=== PATIENT | male | born 1990 | race Two or more races ===

== ENCOUNTER 2024-11-12 18:28 | Emergency (ER) | payer MEDICAID, SELFPAY ==
[2024-11-12 18:29] VITALS: BMI 28.2
[2024-11-12 18:49] VITALS: BP 125/71; PULSE 118; RESP 24; TEMP 39.3; O2SAT 96
--- NOTE | 2024-11-12 19:05 | XR_ITS ---
Examination: PA lateral chest 2 views Technique: Upright PA lateral chest 2 views Exam date and time: November 12, 2024 1952 hrs. Indications: Chest pain sepsis today. Findings: Normal heart size Lungs are clear. The osseous structures are intact Impression: No active disease
--- NOTE | 2024-11-12 19:06 | PD.EDRME ---
Rapid Medical Screening Exam RME Arrival date/time: 11/12/24 18:28 34M with no significant PMH presents to ED with 1 week of cough, CP, and SOB. Patient was diagnosed in [place] with some unknown respiratory infection possibly Valley Fever. Chief Complaint: Flu Like Symptoms Vital signs: Vital Signs Temperature 102.8 F H 11/12/24 18:49 Pulse Rate 118 H 11/12/24 18:49 Respiratory Rate 24 H 11/12/24 18:49 Blood Pressure 125/71 11/12/24 18:49 Pulse Oximetry (%) 96 11/12/24 18:49 Oxygen Delivery Method Room Air 11/12/24 18:49
[2024-11-12 19:29] LABS: Lactate (Lactic Acid) 1.6 mMol/L (0.4-2.0)
[2024-11-12 19:38] LABS: Basophils % (Auto) 0 % (0-2.5); Eosinophils % (Auto) 0 % (0-10); Hemoglobin 16.4 g/dL (13.5-16.0); Immature Granulocytes % (Auto) 0 % (0-0); Immature Granulocytes Auto 0.02 Thou/mm3 (0.00-0.00); Lymphocytes % (Auto) 11 % (10-50); Mean Corpuscular HGB Conc 34.9 g/dl (31.0-37.0); Mean Corpuscular Hemoglobin 29.8 pg (25.0-35.0); Mean Corpuscular Volume 86 fL (80-100); Monocytes # (Auto) 0.6 Thou/mm3 (0.0-0.8); Monocytes % (Auto) 7 % (0-12); Neutrophils # (Auto) 7.3 Thou/mm3 (1.8-7.7); Neutrophils % (Auto) 82 % (37-80); Nucleated Red Blood Cell % 0 /100 WBC (0); Platelet Count 188 Thou/mm3 (140-440); RDW Standard Deviation 37.6 fL (35.1-43.9)
[2024-11-12 20:09] LABS: Alanine Aminotransferase 77 U/L (10-49); Albumin, Serum 4.9 gm/dL (3.5-5.0); Albumin/Globulin Ratio 1.8 (1.2-2.2); Alkaline Phosphatase 106 U/L (46-116); Anion Gap 7 (7-16); Aspartate Amino Transferase 51 U/L (0-34); BUN/Creatinine Ratio 10 Ratio (12-20); Bilirubin,Total 0.3 mg/dL (0.3-1.2); Blood Urea Nitrogen 13 mg/dL (9-23); Calcium 9.9 mg/dL (8.3-10.6); Calcium (Corrected) 9.9 mg/dL (8.5-10.1); Carbon Dioxide 23.6 mMol/L (20.0-31.0); Chloride 105 mMol/L (98-107); Creatinine (Component) 1.3 mg/dL (0.6-1.3); Globulin 2.7 gm/dL (2.3-3.5); Glucose 114 mg/dL (74-106); Osmolality,Calculated 273 (275-295); Potassium 4.4 mMol/L (3.4-5.1); Sodium 136 mMol/L (136-145); Total Protein 7.6 gm/dL (5.7-8.2); Troponin I < 0.002 ng/mL (0.0-0.045); eGFR > 60 See Note
[2024-11-12] MEDS: ALBUTEROL/IPRATROPIUM (Duoneb) RT SOL 3 ML NEBU INH (20:28)
[2024-11-12 20:31] VITALS: TEMP 39.3
[2024-11-12] MEDS: SODIUM CHLORIDE 0.9% 1000 ML 1,000 ML 999 ML IV (20:31)
[2024-11-12] MEDS: NAPROXEN 250 MG TABLET 500 MG PO (20:31)
[2024-11-12] MEDS: ACETAMINOPHEN 500 MG TABLET 1000 MG PO (20:31)
[2024-11-12 20:34] VITALS: PULSE 120; RESP 18; O2SAT 95
--- NOTE | 2024-11-12 21:26 | EDNOTE_ITS ---
<Statement entered by Araceli Welsh MD - 11/13/24 19:20> As co-signing physician, I was present and available for consult prn. I concur with the plan and care as documented by the midlevel provider. Upper Respiratory Inf. RME/HPI General Chief Complaint: Flu Like Symptoms Stated Complaint: FLU SYMPTOMS/COUGH /FEVER X 5DAYS Time Seen by Provider: 11/12/24 21:26 Arrival date/time: 11/12/24 18:28 34M with no significant PMH presents to ED with 1 week of cough, CP, and SOB. Patient's tested positive for flu A. Limitations: no limitations RME / HPI RME / HPI Narrative: 11/12/24 18:28 34M with no significant PMH presents to ED with 1 week of cough, CP, and SOB. Patient was diagnosed in [place] with some unknown respiratory infection possibly [place] Fever. Related Data Allergies Allergy/AdvReac Type Severity Reaction Status Date / Time No Known Allergies Allergy Verified 11/12/24 18:31 Review of Systems Review of Systems Systems Reviewed: All systems reviewed, normal except as documented Constitutional Constitutional: Reports system reviewed and no additional complaints, except as documented, Denies fever(s) and Denies headache(s) ENT Ears, Nose, Mouth, and Throat: Denies disequilibrium and Denies headache(s) Cardiovascular Cardiovascular: Reports system reviewed and no additional complaints, except as documented, Reports as per HPI, Reports chest pain and Reports dyspnea Respiratory Respiratory: Reports system reviewed and no additional complaints, except as documented, Reports as per HPI, Reports cough and Reports dyspnea Gastrointestinal Gastrointestinal: Reports system reviewed and no additional complaints, except as documented, Denies abdominal pain, Denies nausea and Denies vomiting Neurologic Neurologic: Reports system reviewed and no additional complaints, except as documented, Denies confusion, Denies disequilibrium and Denies headache(s) Psychiatric Psychiatric: Denies confusion Past Medical History Social History SMOKING STATUS: Current some day smoker ED Exam General Limitations: Present no limitations General appearance: Present alert and in no apparent distress Head Head exam: Present atraumatic Eye Eye exam: Present normal appearance, PERRL and EOMI ENT ENT exam: Present normal exam, normal oropharynx and mucous membranes moist Neck Neck exam: Present normal inspection, full ROM and trachea midline Chest Chest inspection: Present normal inspection and symmetric chest wall rise Respiratory Respiratory exam: Present normal lung sounds bilaterally Cardiovascular Cardiovascular exam: Present regular rate, normal rhythm and normal heart sounds Abdominal Exam Abdominal exam: Present soft and normal bowel sounds Extremities Exam Extremities exam: Present normal inspection and full ROM Back Exam Back exam: Present normal inspection and full ROM Neurological Exam Neurological exam: Present alert, oriented X3 and CN II-XII intact Psychiatric Psychiatric exam: Present normal affect and normal mood Skin Skin exam: Present warm, dry, intact and normal color Course Quality Measures none Orders Category Date Time Status Bedside COVID-19 Antigen Test NOW Care 11/12/24 18:38 Active Bedside Influenza A&B Antigen Test NOW Care 11/12/24 18:38 Completed EKG (ED ONLY) *Do not use* NOW Care 11/12/24 19:05 Active Insert IV NOW Care 11/12/24 19:09 Active EKG (ED Only) Stat Exams 11/12/24 19:05 Ordered XR chest 2V Stat Exams 11/12/24 19:05 Completed Blood Culture (Lab) Stat Lab 11/12/24 19:22 Received CBC Stat Lab 11/12/24 19:22 Completed Cocci Serology IgM with reflex to IgG [Cocci Serology, Lab 11/12/24 19:22 Received Unk History] Stat Comprehensive Metabolic Panel Stat Lab 11/12/24 19:22 Completed Lactate (Lactic Acid) Stat Lab 11/12/24 19:22 Completed Procalcitonin Stat Lab 11/12/24 19:22 Completed Troponin I Stat Lab 11/12/24 19:22 Completed Acetaminophen Tab [Tylenol ES Tab] Med 11/12/24 19:05 Discontinued 1,000 mg PO X1 ONE Albuterol/Ipratr Rt Nevaeh [Duoneb Rt Nevaeh] Med 11/12/24 19:09 Discontinued 3 ml INH X1 ONE Naproxen [Naprosyn] Med 11/12/24 19:05 Discontinued 500 mg PO X1 ONE Sodium Chloride 0.9% 1000 ml [Ns] 1,000 ml Med 11/12/24 19:09 Discontinued IV 999 mls/hr Vital Signs Vital signs: Vital Signs Temperature 102.8 F H 11/12/24 18:49 Pulse Rate 118 H 11/12/24 18:49 Respiratory Rate 24 H 11/12/24 18:49 Blood Pressure 125/71 11/12/24 18:49 Pulse Oximetry (%) 96 11/12/24 18:49 Oxygen Delivery Method Room Air 11/12/24 18:49 O2 at 96% on RA and WNLs Upper Respiratory Infection MDM Narrative MDM Narrative:: 34M with no significant PMH presents to ED with 1 week of cough, CP, and SOB. Patient's tested positive for flu A. Physical exam reveals clear ENT and lungs. Patient is febrile, but does not appear toxic. Swabs neg. CXR normal. EKG is sinus tach of 119. Normal trop. Normal procal/lactate. No leukocytosis. Likely viral URI. Patient data External records reviewed:: None Clinical information provided by:: patient Social determinants that could affect healthcare access:: none Patient has the following chronic illnesses:: none How is presenting disease/condition affected by chronic disease/condition?: no chronic disease Evaluation data The following diagnostics were reviewed and interpreted by me:: lab results, radiology exam(s) and EKG tracing(s) Lab and/or radiology exams considered but not ordered:: ordered Interpretation Summary: above Medications / Prescriptions Medications or Prescriptions considered but not ordered:: ordered Medication administrations:: Medication Administration History Discontinued Medications Acetaminophen (Acetaminophen 500 Mg Tablet) 1,000 mg PO X1 ONE Stop: 11/12/24 19:06 Last Admin: 11/12/24 20:31 Dose: 1,000 mg Documented By: ADRIAN Albuterol/Ipratropium (Albuterol/Ipratropium (Duoneb) Rt Nevaeh 3 Ml Nebu) 3 ml INH X1 ONE Stop: 11/12/24 19:10 Last Admin: 11/12/24 20:28 Dose: 3 ml Documented By: CRESENCIO Sodium Chloride (Ns) 1,000 mls @ 999 mls/hr IV .Q1H1M ONE Stop: 11/12/24 20:09 Last Admin: 11/12/24 20:31 Dose: 999 mls/hr Documented By: ADRIAN Naproxen (Naproxen 250 Mg Tablet) 500 mg PO X1 ONE Stop: 11/12/24 19:06 Last Admin: 11/12/24 20:31 Dose: 500 mg Documented By: ADRIAN above Consultations Consultation(s) initiated? (list below): No Diagnosis Upper Respiratory Differential Diagnosis: upper respiratory infection, croup, otitis media, sinusitis, viral infection, bronchitis, influenza and pharyngitis Most likely diagnosis given after review of the tests above:: URI Admission Indicated Admission indicated?: not indicated Admission Request Was there a request for admission?: No Disposition Plan Disposition Plan: Discharge Discharge Attestation Discharge Attestation: The patient and all family members were given an opportunity to ask questions and understood the discharge instructions. Discharge instructions specifically effects, indications for sooner follow up or return to the emergency department, and the expected course of current diagnosis. Patient condition: Stable Discharge Plan Plan Patient Disposition: HOME (Self Care) Disposition Comment: Stable Prescriptions/Referrals Referrals: No Primary/Family,Physician [Primary Care Provider] - In 1 week Problem List Clinical Impression: Upper respiratory infection Patient/Caregiver Discharge Instructions Education Materials: ED URI, Viral, No Abx (Adult) Additional Instructions: Please follow-up with PCP within 24-48 hours and return immediately if symptoms worsen. Ibuprofen/Tylenol can be used simultaneously for greater fever/pain control. Benadryl is good for cough, congestion, and sleep. Print Language: Swedish Stand Alone Forms: Patient Portal Info Letter ROMIE/COLEEN Supervising Physician ROMIE/COLEEN Supervising Physician: Dr. Welsh
[2024-11-12 21:31] VITALS: PULSE 89; RESP 16; TEMP 36.7; O2SAT 99
[2024-11-13 14:05] LABS: Cocci Serology, IgM Negative (Negative)
[2024-11-14 14:10] LABS: Cocci Serology, IgG Negative (Negative)
== END 2024-11-12 22:27 | disposition home or self-care (01) ==
PROVIDERS: Physician Assistant; Emergency Provider Emergency Medicine
DX: J06.9 Acute upper respiratory infection, unspecified (principal)
CPT/HCPCS: 36415; 71046; 80053; 83605; 84145; 84484; 85025; 86331; 86635; 87040; 87400; 87811; 93005; 94640; 99284; A9270; J7030